=== PATIENT | female | born 1995 | race Asian ===

== ENCOUNTER 2017-04-13 18:04 | Emergency (ER) | payer OTHER ==
[~2017-04-13] VITALS: Ht 162.6 cm; Wt 48.0 kg
[~2017-04-13 18:04] MED LIST: AMOXMIS3 PO; CYAN10005 PO; FLUC100T4 PO; METR-163 PO
[2017-04-13 18:08] VITALS: TEMP 36.7; Ht 162.6 cm; Wt 48.0 kg
--- NOTE | 2017-04-13 18:48 | EMERGENCY ROOM VISIT NOTE ---
ED Visit Note First contact with patient: 18:14 CHIEF COMPLAINT: Scalp laceration HISTORY OF PRESENT ILLNESS: This 22-year-old female patient presents emergency department approximately 20 minutes after striking the head on a metal trash can. The patient states she was bending over to pick an item up off of the floor, when she suddenly stood back up, hitting her head on the edge of the metal trash can. There was no loss of consciousness, blurry vision, nausea, vomiting, or unusual behavior afterwards. The patient rates the pain as throbbing and 4/10. The patient denies neck pain. The bleeding has stopped. The patient's tetanus shot is up to date. REVIEW OF SYSTEMS: A 6 system review of systems was completed with positives and pertinent negatives listed in the HPI. ALLERGIES: None MEDICATIONS: None PMH: None SOCIAL HISTORY: She is a [employer] student. She lives locally with her roommates. She denies drug, alcohol, tobacco use. PHYSICAL EXAM: Vital Signs: Reviewed Nurse's notes, vital signs stable. GENERAL : This is a 22-year-old female, in no acute distress, well-developed, well -nourished. NEURO: Patient was alert and oriented to person place and time. Sensory and motor functions grossly intact. No focal neurologic deficits. Normal sensation to light and sharp touch. EYES: PERRLA. EOMI. Fundoscopic exam without hemorrhages or papilledema. EARS: No hemotympanum. No garcía sign or mastoid tenderness. SKIN: There is a 1.5 cm laceration on the anterior , superior aspect of the scalp whose edges are gaping apart. There is no active bleeding. The wound is clean and there are no deep structures present. NECK: Supple, cervical spine nontender to palpation. EMERGENCY DEPARTMENT COURSE: I examined the patient. Verbal consent was obtained to perform the procedure. Using sterile technique the wound was cleaned with Betadine. The area was sterilely draped. I did offer local anesthetic, and the patient declines. The wound was copiously irrigated under pressure with sterile saline. The wound was explored and there were no deep structures present. The laceration was repaired using 2 estephanie with the wound edges being well approximated. The patient tolerated the procedure well. The bleeding stopped. The area was cleaned with sterile saline and dressed with bacitracin ointment. The patient was discharged home in good condition. I attest that I have personally reviewed the patient's current medication list. Patient was found to have normal blood pressure on screening and does not require follow-up. DIFFERENTIAL DIAGNOSIS: Laceration, contusion, abrasion, fracture, intracranial hemorrhage, closed head injury, concussion, malignancy, and others DIAGNOSIS: Scalp laceration Problem List Medical Problems: (1) Esophageal reflux Status: Chronic Current/Historical Medications No Active Prescriptions or Reported Meds Allergies Coded Allergies: No Known Allergies (Unverified , 04/13/17) Vital Signs Date Time Temp Pulse Resp B/P (MAP) Pulse Ox O2 Delivery O2 Flow Rate FiO2 04/13/17 18:52 74 16 107/67 97 04/13/17 18:08 36.7 93 14 120/85 99 Room Air Departure Information Impression Primary Impression: Laceration of scalp Dispostion Home / Self-Care Condition GOOD Prescriptions No Active Prescriptions or Reported Meds Referrals No Doctor, Assigned (PCP) Patient Instructions ED Dermatitis Ringworm Scalp, [facility] Additional Instructions You have received 2 estephanie on your scalp. These estephanie are NOT dissolvable and WILL need to be removed by a health care provider in 10 days. You can return to the Emergency Department or contact your Primary Care Provider to have these estephanie removed. Proper wound care is essential for adequate wound healing and infection prevention. You can shower and clean the wound with soap and water. Do scour over the wound, pat dry with a towel. Do not submerse the wound until the estephanie have been removed. You can use an antibiotic ointment with a dressing over the wound for the next 3-4 days. After this time you may leave the wound dry and open to the air. If crust develops over the wound you can use a Q-tip to apply a 1:1 peroxide:water solution to clean the wound. Look for signs of infection of the wound including: increased pain, swelling, foul discharge, streaking, or increased temperature. If any of these are noticed you should return to the Emergency Department for further assessment and treatment. As with any laceration you may have received nerve damage to the surrounding tissues. This damage may or may not be permanent. For pain control, you can use the following [id number] medicines (if >12 yo): Ibuprofen(Motrin, Advil) may be used for fever or pain. Use 600mg every six hours as needed. Take with food. Avoid using more than 2400mg in a 24 hour period. Do not use 2400mg per day for more than three consecutive days without physician direction. Prolonged inappropriate use can lead to stomach upset or ulcers. (AND/OR) Acetaminophen(Tylenol) may be used for fever or pain. Use 1000mg every six hours as needed. Avoid using more than 3000mg in a 24 hour period. Return to the emergency department if your symptoms worsen despite treatment course outlined above. Problem Qualifiers Primary Impression: Laceration of scalp Encounter type: initial encounter Qualified Codes: S01.01XA - Laceration without foreign body of scalp, initial encounter
[2017-04-13 18:52] VITALS: BP 107/67; PULSE 74; O2SAT 97
== END 2017-04-13 18:53 | disposition home or self-care (01) ==
LOC: C.EDB 18:05 → C.EDD 18:53
DX: S01.01XA Laceration without foreign body of scalp, initial encounter (principal); W22.8XXA Striking against or struck by other objects, initial encounter; Y92.9 Unspecified place or not applicable

== ENCOUNTER 2017-07-24 11:31 | Emergency (ER) | payer OTHER ==
[~2017-07-24] VITALS: Ht 162.6 cm; Wt 48.2 kg
[2017-07-24 11:40] VITALS: TEMP 37.1; Ht 162.6 cm; Wt 48.2 kg
[2017-07-24] MEDS ORDERED: PANT40TA PO (12:26)
[2017-07-24 12:59] LABS: INFLUENZA B ANTIGEN Neg for Influ B (NEG)
--- NOTE | 2017-07-24 13:19 | DIAGNOSTIC IMAGING REPORT ---
CHEST 2 VIEWS ROUTINE HISTORY: cough COMPARISON: None. FINDINGS: The lungs are clear. Cardiac silhouette is normal in size. No pleural effusions. No pneumothorax. IMPRESSION: No acute process. Electronically signed by: Sergey Her M.D. 07/24/2017 1:17 PM Dictated Date/Time: 07/24/2017 1:16 PM
[2017-07-24] MEDS ORDERED: TRIMETHOPRIM/POLYMYXIN B OP STA (13:43)
[2017-07-24 13:56] VITALS: BP 109/64; PULSE 66; O2SAT 97
--- NOTE | 2017-07-24 15:21 | EMERGENCY ROOM VISIT NOTE ---
History Report prepared by Kimo: Rodrigo Damon Under the Supervision of: Jurgen MarquesO. First contact with patient: 11:58 Chief Complaint: FLU LIKE SX Stated Complaint: COLD DISCHARGE IN EYE History of Present Illness The patient is a 22 year old female who presents to the Emergency Room with complaints of a worsening illness that started about 6 days ago. She states that she initially started with a sore throat, and that developed into congestion, a runny nose, and stuffy ears. The patient notes that her sore throat is gone, but everything else has remained. She adds that her eyes started watering yesterday with green discharge, and this morning she woke up with her right eye shut closed. The patient denies any chest pain, shortness of breath, nausea, vomiting, diarrhea, or fevers. She says that she has no chronic medical problems. The patient's says that her immunizations are up-to-date. Source of History: patient Onset: About 6 days ago Position: other (global) Quality: other (illness) Timing: worsening Associated Symptoms: + sorethroat (now gone), No fevers, No nausea, No vomiting, No diarrhea Note: Associated symptoms: Runny nose, stuffy ears, congestion. Green discharge from right eye. Review of Systems See HPI for pertinent positives & negatives. A total of 10 systems reviewed and were otherwise negative. Past Medical & Surgical Medical Problems: (1) Esophageal reflux Family History No pertinent family history Social History Smoking Status: Never Smoker Marital Status: single Housing Status: lives with roommate Occupation Status: [employer] student Current/Historical Medications Scheduled Pantoprazole (Protonix), 40 MG PO HS Allergies Coded Allergies: No Known Allergies (Unverified , 07/24/17) Physical Exam Vital Signs Date Time Temp Pulse Resp B/P (MAP) Pulse Ox O2 Delivery O2 Flow Rate FiO2 07/24/17 13:56 66 18 109/64 97 07/24/17 12:31 72 16 104/66 100 Room Air 07/24/17 11:40 37.1 89 17 118/78 99 Room Air Physical Exam GENERAL: Sitting up in bed, alert, well-appearing with a dry cough EYE EXAM: Normal left conjunctiva. Right conjunctiva is injected with a small amount of green discharge. OROPHARYNX: Erythema in the posterior pharynx. No exudate, lips, buccal mucosa, and tongue normal and mucous membranes are moist NECK: supple, no nuchal rigidity, no adenopathy, non-tender LUNGS: Clear to auscultation. Normal chest wall mechanics HEART: no murmurs, S1 normal and S2 normal ABDOMEN: abdomen soft, non-tender, normo-active bowel sounds, no masses, no rebound or guarding. BACK: Back is symmetrical on inspection and there is no deformity, no midline tenderness, no CVA tenderness. SKIN: no rashes and no bruising UPPER EXTREMITIES: upper extremities are grossly normal. LOWER EXTREMITIES: No pitting edema. NEURO EXAM: Normal sensorium, cranial nerves II-XII grossly intact, normal speech, no gross weakness of arms, no gross weakness of legs. Medical Decision & Procedures ER Provider Diagnostic Interpretation: X-ray results as stated below per my review and the radiologist's interpretation : CHEST 2 VIEWS ROUTINE HISTORY: cough COMPARISON: None. FINDINGS: The lungs are clear. Cardiac silhouette is normal in size. No pleural effusions. No pneumothorax. IMPRESSION: No acute process. Electronically signed by: Sergey Her M.D. 07/24/2017 1:17 PM Dictated Date/Time: 07/24/2017 1:16 PM Laboratory Results Test 07/24/17 12:27 Influenza Type A Antigen Neg for Influ A (NEG) Influenza Type B Antigen Neg for Influ B (NEG) Laboratory results per my review. Medications Administered Medications (Trade) Dose Ordered Sig/Aakash Route Start Time Stop Time Status Last Admin Dose Admin Polymyxin/ Trimethoprim Sulfate (Polytrim Oph Soln) 1 drops NOW STAT OP 07/24/17 13:43 07/24/17 13:45 DC 07/24/17 13:53 1 DROPS ED Course ED COURSE: Vital signs were reviewed and showed normal vitals. The patients medical record was reviewed The above diagnostic studies were performed and reviewed. ED treatments and interventions as stated above. 1158: The patient was evaluated in room C11B. A complete history and physical examination was performed. 1335: Upon reevaluation, the patient is resting comfortably.I discussed my findings with the patient and she understands and agrees with the treatment plan. Based on the patients age, coexisting illnesses, exam and lab findings the decision to treat as an outpatient was made. The patient remained stable while under my care. The patient appeared well at the time of discharge. Medical Decision Differential diagnoses includes but is not limited to pneumonia, bronchitis, COPD/Asthma exacerbation, pneumothorax, pulmonary embolism, congestive heart failure, acute coronary syndrome. Patient is otherwise healthy 22-year-old female who presents the ER for URI symptoms. On exam she has a right eye conjunctivitis. Lungs were clear and chest x-ray was unremarkable. Influenza was negative. Patient was updated at bedside. Vitals are stable. She was discharged follow-up with S as an outpatient. Discussed with Pt concerning signs and symptoms to watch out for. Pt was instructed to follow up with their PCP and discussed with the patient their option to return to the ED at anytime for persistent or worsening symptoms. The appropriate anticipatory guidance and out-patient management, including indications for return to the emergency department, were explained at length to the patient and understood. Medication Reconcilliation Current Medication List: was personally reviewed by me Blood Pressure Screening Patient's blood pressure: Normal blood pressure Impression Primary Impression: Conjunctivitis Additional Impression: Upper respiratory infection Scribe Attestation The scribe's documentation has been prepared under my direction and personally reviewed by me in its entirety. I confirm that the note above accurately reflects all work, treatment, procedures, and medical decision making performed by me. Departure Information Dispostion Home / Self-Care Referrals No Doctor, Assigned (PCP) Patient Instructions ED URI Viral, [facility] Additional Instructions Please follow up with your primary care doctor or if you are a student, [facility] with in the next 24 hours. Any worsening of your symptoms, please return to the ED immediately. This includes any fevers greater than 100.4, worsening pain, chest pain, shortness breath, persistent nausea, vomiting, unable to eat or drink, or any other concerning signs or symptoms from your standpoint. Please take Tylenol or Motrin as needed for fevers and muscle aches. Please use eye drops as prescribed. Problem Qualifiers Primary Impression: Conjunctivitis Conjunctivitis type: unspecified Laterality: unspecified laterality Qualified Codes: H10.9 - Unspecified conjunctivitis Additional Impression: Upper respiratory infection URI type: unspecified URI Qualified Codes: J06.9 - Acute upper respiratory infection, unspecified
== END 2017-07-24 13:57 | disposition home or self-care (01) ==
LOC: C.EDB 11:33 → C.EDC 13:57
DX: H10.9 Unspecified conjunctivitis (principal); J06.9 Acute upper respiratory infection, unspecified